=== PATIENT | female | born 1980 | race American Indian/Alaskan Native ===

== ENCOUNTER 2022-04-04 08:14 | Emergency (ER) | payer SELFPAY ==
[2022-04-04 08:21] VITALS: BP 169/96
[2022-04-04 09:22] LABS: Basophils % (Auto) 0.3 % (0.0-1.8); Eosinophils % (Auto) 0.3 % (0.0-4.3); Hematocrit 39.6 % (30.3-42.9); Hemoglobin 12.9 gm/dl (10.1-14.3); Lymphocytes # (Auto) 1.1 K/mm3 (1.2-5.4); Lymphocytes % (Auto) 24.3 % (13.4-35.0); Mean Corpuscular HGB Conc 33 % (30-34); Mean Corpuscular Volume 89 fl (79-97); Monocytes # (Auto) 0.2 K/mm3 (0.0-0.8); Platelet Count 348 K/mm3 (140-440); Red Blood Count 4.47 M/mm3 (3.65-5.03); Red Cell Distribution Width 13.1 % (13.2-15.2)
[2022-04-04 09:44] LABS: Alanine Aminotransferase 7 units/L (7-56); Albumin 4.3 g/dL (3.9-5); Blood Urea Nitrogen 5 mg/dL (7-17); Calcium 8.9 mg/dL (8.4-10.2); Hemolysis Index 5
[2022-04-04 09:54] LABS: BUN/Creatinine Ratio 7
--- NOTE | 2022-04-04 11:19 | XRay Report ---
CHEST 2 VIEWS INDICATION / CLINICAL INFORMATION: Chest Pain. COMPARISON: None available. FINDINGS: SUPPORT DEVICES: None. HEART / MEDIASTINUM: No significant abnormality. LUNGS / PLEURA: No significant pulmonary or pleural abnormality. No pneumothorax. ADDITIONAL FINDINGS: No significant additional findings. IMPRESSION: 1. No acute findings. Signer Name: Gopi Cazares Jr, MD Signed: 04/04/2022 11:15 AM Workstation Name: [id number]
[2022-04-04] MEDS ORDERED: POTASSIUM CHLORIDE ER 20 MEQ TAB PO ONE (14:06)
--- NOTE | 2022-04-04 14:08 | Emergency Department Report ---
ED General Adult HPI - General Chief complaint: Chest Pain Stated complaint: CHEST PAINS/SOB/HEADACHE PUI?: No Source: patient Mode of arrival: Ambulatory Limitations: No Limitations - History of Present Illness Severity scale (0 -10): 5 - Related Data Home Medications Medication Instructions Recorded Confirmed Last Taken No Known Home Medications [No 03/17/16 03/17/16 Unknown Reported Home Medications] Allergies Allergy/AdvReac Type Severity Reaction Status Date / Time No Known Allergies Allergy Verified 04/04/22 08:21 ED Review of Systems ROS: Stated complaint: CHEST PAINS/SOB/HEADACHE Other details as noted in HPI Comment: All other systems reviewed and negative ED Past Medical Hx - Past Medical History Previous Medical History?: Yes Additional medical history: anxiety - Surgical History Past Surgical History?: Yes Additional Surgical History: Achilles tendon surgery - Family History Family history: no significant - Social History Smoking Status: Never Smoker Substance Use Type: None - Medications Home Medications: Home Medications Medication Instructions Recorded Confirmed Last Taken Type No Known Home Medications [No 03/17/16 03/17/16 Unknown History Reported Home Medications] ED Physical Exam - General Limitations: No Limitations General appearance: alert, in no apparent distress, anxious - Head Head exam: Present: atraumatic, normocephalic - Eye Eye exam: Present: normal appearance - ENT ENT exam: Present: mucous membranes moist - Neck Neck exam: Present: normal inspection - Respiratory Respiratory exam: Present: normal lung sounds bilaterally. Absent: respiratory distress - Cardiovascular Cardiovascular Exam: Present: regular rate, normal rhythm. Absent: systolic murmur, diastolic murmur, rubs, gallop - GI/Abdominal GI/Abdominal exam: Present: soft, normal bowel sounds - Extremities Exam Extremities exam: Present: normal inspection - Back Exam Back exam: Present: normal inspection - Neurological Exam Neurological exam: Present: alert, oriented X3 - Psychiatric Psychiatric exam: Present: normal affect, normal mood - Skin Skin exam: Present: warm, dry, intact, normal color. Absent: rash ED Course Vital Signs 04/04/22 08:18 Temperature 98.1 F Pulse Rate 105 H Respiratory 16 Rate Blood Pressure 169/96 [Right] O2 Sat by Pulse 99 Oximetry ED Medical Decision Making - Lab Data Result diagrams: 04/04/22 08:36 04/04/22 08:36 - EKG Data -: EKG Interpreted by Me EKG shows normal: sinus rhythm - EKG Data When compared to previous EKG there are: no significant change Interpretation: no acute changes - Radiology Data Radiology results: report reviewed, image reviewed nap - Medical Decision Making Vital Signs 04/04/22 08:18 Temperature 98.1 F Pulse Rate 105 H Respiratory 16 Rate Blood Pressure 169/96 [Right] O2 Sat by Pulse 99 Oximetry Lab Results 04/04/22 04/04/22 Range/Units 08:36 08:36 WBC 4.5 (4.5-11.0) K/mm3 RBC 4.47 (3.65-5.03) M/mm3 Hgb 12.9 (10.1-14.3) gm/dl Hct 39.6 (30.3-42.9) % MCV 89 (79-97) fl MCH 29 (28-32) pg MCHC 33 (30-34) % RDW 13.1 L (13.2-15.2) % Plt Count 348 (140-440) K/mm3 Lymph % (Auto) 24.3 (13.4-35.0) % Sampson % (Auto) 5.0 (0.0-7.3) % Eos % (Auto) 0.3 (0.0-4.3) % Baso % (Auto) 0.3 (0.0-1.8) % Lymph # (Auto) 1.1 L (1.2-5.4) K/mm3 Sampson # (Auto) 0.2 (0.0-0.8) K/mm3 Eos # (Auto) 0.0 (0.0-0.4) K/mm3 Baso # (Auto) 0.0 (0.0-0.1) K/mm3 Seg Neutrophils % 70.1 H (40.0-70.0) % Seg Neutrophils # 3.2 (1.8-7.7) K/mm3 Sodium 136 L (137-145) mmol/L Potassium 3.2 L (3.6-5.0) mmol/L Chloride 100.5 (98-107) mmol/L Carbon Dioxide 23 (22-30) mmol/L Anion Gap 16 mmol/L BUN 5 L (7-17) mg/dL Creatinine 0.7 (0.6-1.2) mg/dL Estimated GFR > 60 ml/min BUN/Creatinine Ratio 7 % Glucose 135 H (65-100) mg/dL Calcium 8.9 (8.4-10.2) mg/dL Total Bilirubin 0.30 (0.1-1.2) mg/dL AST 9 (5-40) units/L ALT 7 (7-56) units/L Alkaline Phosphatase 24 L (35-129) units/L Troponin T < 0.010 (0.00-0.029) ng/mL Total Protein 7.1 (6.3-8.2) g/dL Albumin 4.3 (3.9-5) g/dL Albumin/Globulin Ratio 1.5 % ekg normal xray chest normal vs normal no si no hi no av john has small child here with her labs noted trop neg k 3.2- replaced still having menses regular- we discussed perimenopause symptoms d/c home with dc plan of care including diet, meds activity and follow up. she verbalizes understanding of plan of care. she remains ambulatory non ill non toxic on dc exam - Differential Diagnosis anxiety/insomnia/stress/perimenopause Critical care attestation.: If time is entered above; I have spent that time in minutes in the direct care of this critically ill patient, excluding procedure time. ED Disposition Clinical Impression: Anxiety, Hypokalemia Insomnia Qualifiers: Insomnia type: unspecified Qualified Code(s): G47.00 - Insomnia, unspecified Disposition: 01 HOME / SELF CARE / HOMELESS Is pt being admited?: No Does the pt Need Aspirin: No Condition: Stable Instructions: Insomnia, Managing Anxiety, Adult Additional Instructions: continue your nighttime Magnesium avoid caffeine exercise daily work on stress over the counter benadry 25 mg at night may help with sleep follow up with pcp follow up with obgyn as we discussed avoid drugs/etoh/marijuana see attached information Referrals: JODI SLAUGHTER MD [Staff Physician] - 3-5 Days Forms: Work/School Release Form(ED) Time of Disposition: 14:04
--- NOTE | 2022-04-04 16:49 | Electrocardiograph Report ---
[facility] Test Date: 2022-04-04 Test Time: 08:23:13 Pat Name: November Department: Room: Gender: F Design Tech: GEOVANNA : 1980 Requested By: ISAAC BAUTISTA Order Number: [id number] Reading MD: Violeta Woods Measurements Intervals [place] Rate: 88 P: 85 [place]: 143 QRS: 262 QRSD: 85 T: 39 QT: 382 QTc: 463 Interpretive Statements Sinus rhythm Markedly posterior QRS axis NONSPECIFIC T ABNORMALITIES, DIFFUSE LEADS No previous ECG available for comparison Electronically Signed On 04-04-2022 16:49:33 EDT by Violeta Woods
== END 2022-04-04 15:00 | disposition home or self-care (01) ==
LOC: ED 08:14
DX: F41.9 Anxiety disorder, unspecified (principal); E87.6 Hypokalemia; G47.00 Insomnia, unspecified; Z79.899 Other long term (current) drug therapy
CPT/HCPCS: 36415; 71046; 80053; 84484; 85025; 93005; 99283